=== PATIENT | male | born 1980 | race Hispanic/Latino ===

== ENCOUNTER 2022-08-17 14:26 | Emergency (ER) | payer SELFPAY ==
[2022-08-17 14:35] VITALS: BP 161/91; PULSE 75; RESP 16; TEMP 36.2; O2SAT 100
--- NOTE | 2022-08-17 15:33 | PC.NURSE ---
BS 411
[2022-08-17 15:34] LABS: Glucose Point of Care 411 mg/dl (65-105)
[2022-08-17 15:50] LABS: Basophils Percent Auto 0.5 % (0.2-1.2); Eosinophils Absolute Auto 0.3 K/mm3 (0-0.3); Eosinophils Percent Auto 3.3 % (0-4.4); Hemoglobin 13.7 g/dL (14.0-18.0); Immature Granulocyte Absolute 0.01 K/mm3 (0.00-0.031); Immature Granulocyte Percent A 0.1 % (0-0.5); Lymphocytes Absolute Auto 3.61 K/mm3 (0.9-3.2); Lymphocytes Percent Auto 47.7 % (18.3-44.2); Mean Corpuscular HGB Conc 33.4 g/dl (32-36); Mean Corpuscular Hemoglobin 27.1 pg (26-34); Monocytes Absolute Auto 0.5 K/mm3 (0.1-0.6); Monocytes Percent Auto 6.6 % (2.6-8.5); Neutrophils Absolute Auto 3.2 K/mm3 (1.3-6.7); Neutrophils Percent Auto 41.8 % (45.5-73.1); Platelet Count Result 246 k/mm3 (150-375); Red Blood Count 5.06 M/mm3 (4.6-6.20); Red Cell Distribution Width 13.2 % (11.5-14.5); White Blood Count 7.6 K/mm3 (4.5-10.0)
[2022-08-17 15:52] LABS: Appearance Urine Clear (Clear); Bilirubin Urine Negative (Negative); Blood Urine Negative (Negative); Color Urine Yellow (Yellow); Glucose Urine UA 3+ mg/dL (Negative); Ketones Urine Negative (Negative); Leukocyte Esterase Ur Negative LEU/UL (Negative); Nitrate Urine Negative (Negative); Protein Urine Negative (Negative); Specific Grav Ur 1.033 (1.001-1.035)
[2022-08-17 16:00] LABS: Alanine Aminotransferase 40 U/L (6-50); Albumin Level 4.1 g/dL (3.5-5.1); Alkaline Phosphatase 161 U/L (38-126); Anion Gap 6 mmol/L (8-16); Aspartate Amino Transferase 42 U/L (17-59); Bilirubin,Total 0.5 mg/dL (0.2-1.3); Blood Urea Nitrogen 16 mg/dL (9-20); Calcium 8.3 mg/dL (8.4-10.2); Carbon Dioxide 31 mmol/L (22-30); Chloride 96 mmol/L (98-107); Estimated CRCL calculation 216 ml/min; Estimated Glomerular Filt Rate > 60; Glucose 431 mg/dL (65-110); Potassium 4.4 mmol/L (3.4-5.0); Sodium 133 mmol/L (137-145)
[2022-08-17 16:04] LABS: Beta-Hydroxybutyrate/Acetoacetate 0.12 mmol/L (0.02-0.27)
[2022-08-17 16:04] LABS: Add Urine Microscopic? NO
[2022-08-17] MEDS: INSULIN HUMAN REGULAR (*BKC) 100 UNITS/ML 12 UNITS IV PUSH (16:45)
--- NOTE | 2022-08-17 16:45 | ED.EXTPRO ---
HPI - Extremity Problem General Chief complaint: Extremity Problem,Nontraumatic Stated complaint: pain hand/feet/knee Time Seen by Provider: 08/17/22 16:21 History of Present Illness HPI Narrative: Pt presents with burning pain to his feet and fingers for several months. Pt is diabetic and has not been managing his sugars well and has not been modifying his diet. Pt not sure how his sugars have been running (400s here). Pt denies vomiting or fever or diarrhea. Related Data Allergies Allergy/AdvReac Type Severity Reaction Status Date / Time No Known Allergies Allergy Verified 08/17/22 15:27 Review of Systems Review of Systems: All systems reviewed & are unremarkable except as noted in HPI and below Exam Const: General: healthy appearing Nutritional Appearance: well nourished Orientation/consciousness: patient oriented x3 Limitations: no limitations Resp: Effort & Inspection: normal respiratory effort Auscultation: clear to auscultation bilaterally Cardio: Rate: regular rate Rhythm: regular rhythm GI: GI Palp: Yes Soft to palpation Auscultation: normal bowel sounds Skin: General skin exam: normal color Wounds: no wounds Neuro: General: patient oriented x3 and moves all extremities Speech: normal speech Extrem: General: normal to inspection and no clubbing, cyanosis or edema Psych: Mental Status: mental status grossly normal Affect: normal affect Attitude: cooperative Course Vital Signs Vital signs: Vital Signs Temperature 97.1 F L 08/17/22 14:35 Pulse Rate 75 08/17/22 14:35 Respiratory Rate 16 08/17/22 14:35 Blood Pressure 161/91 H 08/17/22 14:35 Pulse Oximetry 100 08/17/22 14:35 Temperature 97.7 F 08/17/22 16:46 Pulse Rate 75 08/17/22 16:46 Respiratory Rate 15 08/17/22 16:46 Blood Pressure 183/99 H 08/17/22 16:46 Pulse Oximetry 100 08/17/22 16:46 MDM - Extremity (Nontraumatic) MDM Narrative Medical decision making narrative: Pt non compliant diabetic with likely neuropathy, will give insulin to bring down sugar and prescribe neurontin for neuropathy.. Repeat BS in 200's ok to discharge Lab Data 08/17/22 15:43 08/17/22 15:43 Labs: Lab Results 08/17/22 08/17/22 08/17/22 Range/Units 15:32 15:42 15:43 WBC 7.6 (4.5-10.0) K/mm3 RBC 5.06 (4.6-6.20) M/mm3 Hgb 13.7 L (14.0-18.0) g/dL Hct 41.0 L (42.0-52.0) % MCV 81.0 (80-100) fl MCH 27.1 (26-34) pg MCHC 33.4 (32-36) g/dl RDW 13.2 (11.5-14.5) % Plt Count 246 (150-375) k/mm3 MPV 10.0 (7.4-10.4) fl Immature Gran % (Auto) 0.1 (0-0.5) % Neut % (Auto) 41.8 L (45.5-73.1) % Lymph % (Auto) 47.7 H (18.3-44.2) % [place] % (Auto) 6.6 (2.6-8.5) % Eos % (Auto) 3.3 (0-4.4) % Baso % (Auto) 0.5 (0.2-1.2) % Lymph # (Auto) 3.61 H (0.9-3.2) K/mm3 [place] # (Auto) 0.5 (0.1-0.6) K/mm3 Eos # (Auto) 0.3 (0-0.3) K/mm3 Baso # (Auto) 0.0 (0.0-0.1) K/mm3 Abs Immat Gran (auto) 0.01 (0.00-0.031) K/mm3 Absolute Neuts (auto) 3.2 (1.3-6.7) K/mm3 Absolute Nucleated RBC 0.0 (0.0-0.012) K/mm3 Nucleated RBC % 0.0 (0.0-0.2) % Sodium (137-145) mmol/L Potassium (3.4-5.0) mmol/L Chloride (98-107) mmol/L Carbon Dioxide (22-30) mmol/L Anion Gap (8-16) mmol/L BUN (9-20) mg/dL Creatinine (0.7-1.3) mg/dL Estim Creat Clear Calc ml/min Estimated GFR (59 - ) Glucose (65-110) mg/dL POC Capillary Glucose 411 H (65-105) mg/dl Calcium (8.4-10.2) mg/dL Total Bilirubin (0.2-1.3) mg/dL AST (17-59) U/L ALT (6-50) U/L Alkaline Phosphatase (38-126) U/L Total Protein (6.3-8.2) g/dL Albumin (3.5-5.1) g/dL Beta-Hydroxybutyrate/Acetoacetate 0.12 (0.02-0.27) mmol/L Urine Color (Yellow) Urine Appearance (Clear) Urine pH (5.0-9.0) Ur Specific [place] (1.001-1.035) Urine Protein (Negative) mg/dL Urine
[2022-08-17 16:46] VITALS: BP 183/99; PULSE 75; RESP 15; TEMP 36.5; O2SAT 100
[2022-08-18 06:30] LABS: Glucose Point of Care 278 mg/dl (65-105)
== END 2022-08-17 17:52 | disposition home or self-care (01) ==
PROVIDERS: Emergency Provider Emergency Medicine
DX: E11.40 Type 2 diabetes mellitus with diabetic neuropathy, unspecified (principal)
CPT/HCPCS: 36415; 80053; 81003; 82010; 82948; 85025; 99283; J1815

== ENCOUNTER 2023-07-03 22:32 | Observation (INO) | payer MEDICAID, SELFPAY ==
--- NOTE | ~2023-07-03 | CT_ITS ---
Clinical Indication: Shortness of breath CT Scan of the Chest with Contrast: Technique: Contiguous sections were acquired throughout the chest after intravenous administration of 100 cc of Omnipaque 350. Dose reduction technique was used on this scan by utilizing automated expos ure control and iterative reconstruction technique. The dose-length product (DLP) was 908.38 mGy-cm. Findings: There is no evidence of any significant mediastinal, hilar or axillary lymphadenopathy. There is no f illing defect in the pulmonary arterial tree to suggest pulmonary embolus. There is no evidence of ao rtic dissection or aneurysm. There is no evidence of pleural or pericardial effusion. 3 mm right middle lobe pulmonary nodule noted. Lungs are otherwise clear. Images through the upper abdomen reveal no abnormalities. Impression: No evidence of pulmonary embolus, aortic dissection, or aortic aneurysm. 3 mm right middle lobe pulmonary nodule. According to Fleischner Society criteria, for a low-risk pat ient, no further follow-up required. For a high-risk patient, consider 12 follow-up CT. Reviewed, dictated and finalized at [facility]. ON SPINDLER Impression: No evidence of pulmonary embolus, aortic dissection, or aortic aneurysm. 3 mm right middle lobe pulmonary nodule. According to Fleischner Society criter ia, for a low-risk patient, no further follow-up required. For a high-risk pranay ent, consider 12 follow-up CT.
--- NOTE | ~2023-07-03 | XR_ITS ---
Portable chest x-ray Comparison: None Clinical History: Shortness of breath Findings: Lungs are clear, without focal consolidation or pleural effusion. Cardiomediastinal silho uette is unremarkable. Bones and soft tissues are unremarkable. Impression: Normal chest. Reviewed, dictated and finalized at [facility]. IC WELDER Impression: Normal chest.
[2023-07-03 22:40] VITALS: BP 196/118; PULSE 88; RESP 15; O2SAT 100
[2023-07-03 22:51] LABS: Glucose Point of Care 336 mg/dl (65-105)
--- NOTE | 2023-07-03 22:53 | ECG_ITS ---
Measurements Intervals [place] Rate: 91 P: 41 TN: 165 QRS: 44 QRSD: 96 T: 62 QT: 379 QTc: 467 Interpretive Statements SINUS RHYTHM VENTRICULAR PREMATURE COMPLEX POSSIBLE LEFT ATRIAL ENLARGEMENT DELAYED PRECORDIAL R/S TRANSITION VOLTAGE CRITERIA FOR LVH ST ELEVATION IN ANTERIOR LEADS- PROBABLY EARLY REPOLARIZATION BORDERLINE ECG NO PREVIOUS ECG AVAILABLE FOR COMPARISON Electronically Signed On 07-04-2023 6:43:45 CISSP by Hugo Lundberg D.O.
[2023-07-03] MEDS: SODIUM CHLORIDE 0.9% IV 1,000 ML 999 ML IV CONT (23:00)
[2023-07-03 23:03] LABS: Basophils Absolute Auto 0.1 K/mm3 (0.0-0.1); Basophils Percent Auto 0.4 % (0.2-1.2); Eosinophils Absolute Auto 0.3 K/mm3 (0-0.3); Eosinophils Percent Auto 2.2 % (0-4.4); Hematocrit 43.4 % (42.0-52.0); Hemoglobin 14.1 g/dL (14.0-18.0); Immature Granulocyte Absolute 0.02 K/mm3 (0.00-0.031); Immature Granulocyte Percent A 0.2 % (0-0.5); Lymphocytes Absolute Auto 4.78 K/mm3 (0.9-3.2); Lymphocytes Percent Auto 42.2 % (18.3-44.2); Mean Corpuscular HGB Conc 32.5 g/dl (32-36); Mean Corpuscular Hemoglobin 25.6 pg (26-34); Mean Corpuscular Volume 78.8 fl (80-100); Mean Platelet Volume 9.6 fl (7.4-10.4); Monocytes Percent Auto 8.5 % (2.6-8.5); Neutrophils Absolute Auto 5.3 K/mm3 (1.3-6.7); Neutrophils Percent Auto 46.5 % (45.5-73.1); Platelet Count Result 255 k/mm3 (150-375); Red Blood Count 5.51 M/mm3 (4.6-6.20); Red Cell Distribution Width 13.3 % (11.5-14.5); White Blood Count 11.3 K/mm3 (4.5-10.0)
[2023-07-03 23:16] LABS: Fractional Inspired Oxygen 21 %; HCO3 VBG 27.8 mEq/l (24.0-30.0); PCO2 VBG 35.9 mmHg (42.0-48.0); PO2 VBG 27.8 mmHg (35.0-45.0)
[2023-07-03 23:17] LABS: pH VBG 7.508 (7.300-7.400)
[2023-07-03 23:18] LABS: Device ROOM AIR; INR 0.9; Prothrombin Time 12.9 Seconds (11.1-14.7)
[2023-07-03 23:19] LABS: Partial Thromboplastin Time 28.2 SECONDS (22.3-36.8)
[2023-07-03 23:20] LABS: Alanine Aminotransferase 35 U/L (6-50); Albumin Level 4.3 g/dL (3.5-5.1); Alkaline Phosphatase 137 U/L (38-126); Anion Gap 10 mmol/L (8-16); Aspartate Amino Transferase 30 U/L (17-59); Bilirubin,Total 0.7 mg/dL (0.2-1.3); Blood Urea Nitrogen 9 mg/dL (9-20); Calcium 8.9 mg/dL (8.4-10.2); Carbon Dioxide 29 mmol/L (22-30); Chloride 90 mmol/L (98-107); Estimated CRCL calculation 155 ml/min; Estimated Glomerular Filt Rate > 60; Glucose 297 mg/dL (65-110); Lactic Acid Reflex 3.2 mmol/L (0.7-2.0); Lipase 125 U/L (23-300); Magnesium 1.5 mg/dL (1.6-2.3); Potassium 3.9 mmol/L (3.4-5.0); Sodium 129 mmol/L (137-145)
[2023-07-03 23:30] LABS: NT Pro B Type Natriuretic Pept 73 pg/mL (19.9-100); Troponin I < 0.012 ng/mL (0.000-0.034)
[2023-07-03 23:36] LABS: Procalcitonin 0.1 ng/mL
[2023-07-03 23:47] LABS: Appearance Urine Clear (Clear); Bacteria Urine None Seen /hpf; Bilirubin Urine Negative (Negative); Blood Urine Trace (Negative); Color Urine Yellow (Yellow); Glucose Urine UA 2+ mg/dL (Negative); Ketones Urine Negative (Negative); Leukocyte Esterase Ur Negative LEU/UL (Negative); Need Manual Microscopic Reviewed; Nitrate Urine Negative (Negative); Non Pathogenic Casts 0-2; Protein Urine Negative (Negative); RBC Urine 0-2 /hpf (0-2); Specific Grav Ur 1.005 (1.001-1.035); Squamous Epithelial Cell Urine None seen /hpf (Few); Urobilinogen Urine 0.2 mg/dL (<2.0); WBC Urine 0-5 /hpf; pH Urine 7.5 (5.0-9.0)
[2023-07-03 23:49] LABS: Add Urine Microscopic? YES
[2023-07-03 23:58] LABS: Beta-Hydroxybutyrate/Acetoacetate 0.12 mmol/L (0.02-0.27)
[2023-07-04] VITALS (19 sets, daily range): BP systolic 121–208; BP diastolic 60–116; PULSE 75–110; RESP 15–18; TEMP 36.4–37.1; O2SAT 98–100; BMI 33.3
--- NOTE | 2023-07-04 00:46 | ED.GENADULT ---
HPI - General Adult General Chief complaint: Shortness of Breath/Dyspnea Stated complaint: headache, SOB Time Seen by Provider: 07/03/23 22:40 History of Present Illness HPI narrative: Patient is a 43-year-old gentleman who presents emergency department with chief complaint of headache and shortness of breath. The patient reports that he is diabetic and his blood sugars have been running low on the high side she also reported some increasing urination and aches over his entire body. Patient states that his head has been very uncomfortable and reports that has little bit of a tightness and feeling as though he needs to take a good deep breath. Related Data Home Medications Medication Instructions Recorded Confirmed atorvastatin 20 mg tablet mg 07/04/23 glimepiride 4 mg tablet mg 07/04/23 losartan 50 mg tablet mg 07/04/23 metformin 500 mg tablet mg 07/04/23 Allergies Allergy/AdvReac Type Severity Reaction Status Date / Time No Known Allergies Allergy Verified 07/03/23 22:53 Review of Systems Review of Systems: A 10 system review of systems was completed on the patient and is negative except for what is stated in the HPI. Nursing and ancillary documentation was reviewed. Exam Narrative: GENERAL: Well-appearing, well-nourished, and in no acute distress. HEAD: Normocephalic, atraumatic. EYES: PERRLA and EOMI. ENT: Nares clear, no rhinorrhea or epistaxis. Mucous membranes moist. NECK: Supple. CHEST: Clear to auscultation. No respiratory distress. HEART: Regular rate and rhythm. No murmur heard. Normal peripheral pulses. ABDOMEN: Soft, nontender, nondistended, normal active bowel sounds. EXTREMITIES: Normal range of motion. No edema. SKIN: Warm, dry, no rash. NEURO: No focal deficits. Alert and oriented x3. PSYCH: Normal mood and affect. Course Vital Signs Vital signs: Vital Signs Pulse Rate 88 07/03/23 22:40 Respiratory Rate 15 07/03/23 22:40 Blood Pressure 196/118 H 07/03/23 22:40 Pulse Oximetry 100 07/03/23 22:40 Oxygen Delivery Room Air 07/03/23 22:40 Pulse Rate 100 07/04/23 03:34 Respiratory Rate 15 07/04/23 03:34 Blood Pressure 134/82 07/04/23 03:34 Pulse Oximetry 99 07/04/23 03:34 Oxygen Delivery Room Air 07/03/23 22:40 Medical Decision Making [facility] Narrative Medical decision making narrative: Differential diagnosis includes hypertensive crisis, ACS, pulmonary embolism, DKA, hyperglycemia Laboratory studies were obtained on the patient which showed the patient to be alkalotic and mildly elevated lactic acid. The patient's magnesium was 1.5 this was corrected with 2 g of magnesium IV in the emergency department. Patient's blood sugar initially was 336 and has subsequently come down into the 200s. CTA chest showed no evidence of pulmonary embolism initial troponin was -3 hour delta troponin was negative as well the patient was moderately hypertensive upon initial arrival with a blood pressure of 196/118. Given the patient was short of breath and also is having some discomfort in the chest and also headache there was concern for end-organ dysfunction patient showing no signs of renal failure has known focal neurological deficits patient's blood pressure was managed in the emergency department and the case was discussed with the hospitalist the patient be admitted for observation to achieve blood pressure control and hyperglycemia control. Vital Signs Vital Signs: Vital Signs Pulse Rate 88 07/03/23 22:40 Respiratory Rate 15 07/03/23 22:40 Blood Pressure 196/118 H 07/03/23 22:40 Pulse Oximetry 100 07/03/23 22:40 Oxygen Delivery Room Air 07/03/23 22:40 Pulse Rate 100 07/04/23 03:34 Respiratory Rate 15 07/04/23 03:34 Blood Pressure 134/82 07/04/23 03:34 Pulse Oximetry 99 07/04/23 03:34 Oxygen Delivery Room Air 07/03/23 22:40 Lab Data 07/03/23 22:56 07/03/23 22:56 Labs: Lab R
[2023-07-04] MEDS: hydrALAZINE HCL 20 MG/ML VIAL 10 MG IV PUSH (00:52)
[2023-07-04 02:01] LABS: Glucose Point of Care 263 mg/dl (65-105)
[2023-07-04 02:01] LABS: Reflex Lactic Acid Yes or No Add Lactic
[2023-07-04] MEDS: hydrALAZINE HCL 20 MG/ML VIAL IV PUSH (02:04)
[2023-07-04 02:05] LABS: Influenza A QL RT-PCR Negative (Negative); Influenza B QL RT-PCR Negative (Negative); RSV RNA, RT-PCR Negative (Negative); SARS-CoV-2 RNA PCR Negative (Negative)
[2023-07-04 02:11] LABS: Troponin I < 0.012 ng/mL (0.000-0.034)
[2023-07-04 02:14] LABS: Lactic Acid Reflex 2.1 mmol/L (0.7-2.0)
[2023-07-04] MEDS: METOPROLOL TARTRATE 50 MG TAB PO (04:09)
[2023-07-04] MEDS: MAGNESIUM SULF 2 GM/WATER 50ML 2 GM/50 ML BAG IVPB ×2 (04:09→16:37)
--- NOTE | 2023-07-04 05:05 | ADMGEN ---
This patient, Zaire Posada, was admitted to IMU Room 202-01. Patient/family oriented to hospital policies and general routines including ID bracelet, bed and alarms, visiting hours, pain management, procedures, bathroom and other care routines, personal items, smoking policy, room service/diet, and visiting hours. Information on how to activate the Rapid Response Team has been discussed. Patient/Family are encouraged to report perceived risks to care and to ask questions if they do not understand what they are told or what they should do.
[2023-07-04] MEDS: ACETAMINOPHEN 325 MG TABLET 650 MG PO (05:13)
[2023-07-04 05:16] LABS: Glucose Point of Care 306 mg/dl (65-105)
[2023-07-04 07:17] LABS: Lactic Acid 3.3 mmol/L (0.7-2.0)
[2023-07-04 08:38] LABS: Glucose Point of Care 448 mg/dl (65-105)
[2023-07-04] MEDS: INSULIN ASPART (*BKC) 100 UNITS/ML 8 UNITS SUB-Q (08:44)
[2023-07-04] MEDS: INSULIN GLARGINE (*BKC) 100 UNITS/ML 20 UNITS SUB-Q (08:44)
[2023-07-04 09:50] LABS: Hemoglobin A1C 12.9 % (<5.7)
[2023-07-04 11:58] LABS: Glucose Point of Care 351 mg/dl (65-105)
[2023-07-04] MEDS: INSULIN ASPART (*BKC) 100 UNITS/ML SUB-Q (12:19)
--- NOTE | 2023-07-04 13:49 | PCDIET ---
Pt was seen and assessed by simulation educator. Diabetes handbook in Nepalese provided to pt and family.
--- NOTE | 2023-07-04 15:47 | PM.IMHP ---
H&P: HPI History of Present Illness Date/Time: 07/04/23 15:47 Chief Complaint: Shortness of breath Narrative: Patient is a 43-year-old gentleman who presents emergency department with chief complaint of headache and shortness of breath.? The patient reports that he is diabetic and his blood sugars have been running low on the high side He also reported some increasing urination and aches over his entire body.? Patient states that his head has been very uncomfortable and reports that has little bit of a tightness and feeling as though he needs to take a good deep breath. He denies nausea, vomiting, fevers, chills, rigors, skin/joint changes. He drinks beers often, denies recreational/illicit drugs; he does not smoke/chew tobacco. She confesses that she does not take his medications, citing that he travels for work and is not in contact with his PCP office. Work-up findings: UA: Unremarkable Influenza A/B, RSV, SARS-COV2: -VE CTA chest: No evidence of pulmonary embolus, aortic dissection, or aortic aneurysm. 3 mm right middle lobe pulmonary nodule. According to Fleischner Society criteria, for a low-risk patient, no further follow-up required. For a high-risk patient, consider 12 follow-up CT. CXR: Unremarkable He will be admitted, evaluated and managed for hyperglycemia Review of Systems Constitutional: Constitutional: Reports no additional constitutional complaints and Reports fatigue Eyes: Eyes: Reports no additional eye complaints ENT: Reports system reviewed and no additional complaints, except as documented Cardiovascular: Cardiovascular: Reports no additional cardiovascular complaints Respiratory: Respiratory: Reports no additional respiratory complaints Gastrointestinal: Gastrointestinal: Reports no additional gastrointestinal complaints Genitourinary: Comments: Polyuria Musculoskeletal: Musculoskeletal: Reports no additional musculoskeletal complaints Integumentary/Breasts: Skin/Breast: Reports system reviewed and no additional complaints, except as docu Neurologic: Reports system reviewed and no additional complaints, except as documented Psychiatric: Psychiatric: Reports no additional psychiatric complaints PENDING SALE TO [facility] Past Medical History Medical History (Updated 07/04/23 @ 16:09 by Ciaran Tovar MD) Obesity (BMI 30.0-34.9) Family History Family History (Updated 07/04/23 @ 05:27 by Sasha Wallace RN) Mother Diabetes mellitus Sibling Diabetes mellitus Sibling Diabetes mellitus Social History Social History Smoking packs per day: 1 Smoking cigarettes per day: 20.0 Years smoked: 25 Smoking pack-years: 25.00 Smoking status: Current some day smoker Tobacco type: cigarettes Additional smoking assessment comments: Only smokes when he is drinnking Alcohol intake: current Substance use: current Substance use type: crack/cocaine Other substance usage details: Drinks 20 beers a night on the weekends. Last use: Cocaine on 07/01/23 Do You Feel Safe in your Home?: Yes Lack of Transportation: No Lack of Food: Never True Current Housing: I Have Housing Concerned About Future Housing: No Difficulty Paying Gas/Electric Bills: No Difficulty Paying for Meds: No Currently Unemployed: No Education: High School Diploma/GED Difficulty w/ Childcare or Family Care: No Spiritual care concerns: No Meds Home Medications and Allergies Home Medications Medication Instructions Recorded Confirmed Type ibuprofen 200 mg BYMOUTH QID PRN Headache 07/04/23 07/04/23 History Allergies Allergy/AdvReac Type Severity Reaction Status Date / Time No Known Allergies Allergy Verified 07/03/23 22:53 Vital Signs Vital Signs - 24 hr 07/03/23 22:40 07/04/23 00:23 07/04/23 00:52 Temperature Pulse Rate 88 84 86 Respiratory Rate 15 16 15 Blood Pressure 196/118 H 190/112 H 208/116 H Pulse Oxim
[2023-07-04 16:41] LABS: Cholesterol 198 mg/dL (0-200)
[2023-07-04 16:43] LABS: Triglycerides 709 mg/dL (<150)
[2023-07-04 16:45] LABS: LDL Cholesterol Direct 67 mg/dL; NT Pro B Type Natriuretic Pept 142 pg/mL (19.9-100)
[2023-07-04 16:58] LABS: Glucose Point of Care 458 mg/dl (65-105)
[2023-07-04] MEDS: INSULIN ASPART (*BKC) 100 UNITS/ML 12 UNITS SUB-Q (18:11)
[2023-07-04 20:03] LABS: Glucose Point of Care 305 mg/dl (65-105)
[2023-07-04] MEDS: INSULIN GLARGINE (*BKC) 100 UNITS/ML 35 UNITS SUB-Q (21:09)
[2023-07-05] VITALS (10 sets, daily range): BP systolic 151–168; BP diastolic 81–99; PULSE 75–98; RESP 16–18; TEMP 36.3–36.7; O2SAT 98–100
--- NOTE | 2023-07-05 | ECHO_ITS ---
Patient Info Name: Zaire Posada Age: 43 years : 1980 Gender: Male Ht: 68 in Wt: 222 lbs BSA: 2.23 m2 HR: 86 bpm BP: 168 / 90 mmHg Heart Rhythm: Sinus Rhythm Technical Quality: Good Exam Date: 07/05/2023 9:42 AM Exam Location: Echo Lab Patient Status: Inpatient Admit Date: 07/04/2023 Staff Ordering Physician: Ciaran Tovar MD Latcher: Amna Hurley RDCS Attending Provider: Estela Mckeon DO Referring Physician: La SLAUGHTER; Exam Type: CA echo doppler color flow Study Info Indications R06.02 - Shortness of breath Complete two-dimensional, color flow and Doppler transthoracic echocardiogram is performed. Summary 1. Complete two-dimensional, color flow and Doppler transthoracic echocardiogram is performed. 2. Left ventricular chamber dimension is normal. 3. Left ventricular systolic function is normal, estimated at 65-70%. 4. There is moderately increased left ventricular wall thickness. 5. The left ventricular diastolic function is grade I diastolic dysfunction. 6. Right ventricular systolic function is normal. 7. There is trace mitral valve regurgitation. 8. There is trace tricuspid valve regurgitation. Left Ventricle Left ventricular chamber dimension is normal. Left ventricular systolic function is normal, estimated at 65-70%. There is moderately increased left ventricular wall thickness. The left ventricular diastolic function is grade I diastolic dysfunction. Right Ventricle Right ventricular chamber dimension is normal. Right ventricular systolic function is normal. Left Atria Left atrial chamber dimension is normal. Right Atria Right atrial chamber dimension is normal. Atrial Septum Intact interatrial septum visualized by color flow imaging. Aortic Valve The aortic valve is trileaflet. There is no aortic valve stenosis. There is no aortic valve regurgitation. Pulmonic Valve The pulmonic valve is not well visualized. Mitral Valve There is trace mitral valve regurgitation. Tricuspid Valve There is trace tricuspid valve regurgitation. Pericardium/Pleural There is no pericardial effusion. Inferior Vena Cava Normal inferior vena cava with <50% collapse upon inspiration consistent with elevated right atrial pressure, 8 mmHg. Aorta The aortic root size at the sinus of Valsalva is normal. Left Ventricular Outflow Tract Name Value Normal LVOT 2D LVOT Diameter 2.2 cm LVOT Doppler LVOT Peak Gradient 5 mmHg LVOT Mean Gradient 2 mmHg LVOT VTI 17 cm LVOT VTI/AV VTI Ratio 0.7 LVOT Stroke Volume 63 ml LVOT CO 4.8 l/min LVOT CI 2.2 l/min/m2 Pulmonic Valve Name Value Normal RVOT Doppler RVOT Peak Gradient 3 mmHg PV Doppler
[2023-07-05 05:01] LABS: Basophils Percent Auto 0.4 % (0.2-1.2); Eosinophils Absolute Auto 0.2 K/mm3 (0-0.3); Eosinophils Percent Auto 3.4 % (0-4.4); Hematocrit 41.1 % (42.0-52.0); Hemoglobin 13.1 g/dL (14.0-18.0); Immature Granulocyte Absolute 0.02 K/mm3 (0.00-0.031); Immature Granulocyte Percent A 0.3 % (0-0.5); Lymphocytes Absolute Auto 3.43 K/mm3 (0.9-3.2); Lymphocytes Percent Auto 47.9 % (18.3-44.2); Mean Corpuscular HGB Conc 31.9 g/dl (32-36); Mean Corpuscular Hemoglobin 25.7 pg (26-34); Mean Corpuscular Volume 80.6 fl (80-100); Monocytes Absolute Auto 0.6 K/mm3 (0.1-0.6); Neutrophils Absolute Auto 2.9 K/mm3 (1.3-6.7); Platelet Count Result 231 k/mm3 (150-375); Red Cell Distribution Width 13.5 % (11.5-14.5); White Blood Count 7.2 K/mm3 (4.5-10.0)
[2023-07-05 05:13] LABS: Alanine Aminotransferase 29 U/L (6-50); Albumin Level 3.7 g/dL (3.5-5.1); Alkaline Phosphatase 140 U/L (38-126); Anion Gap 7 mmol/L (8-16); Aspartate Amino Transferase 30 U/L (17-59); Bilirubin,Total 0.7 mg/dL (0.2-1.3); Blood Urea Nitrogen 14 mg/dL (9-20); Calcium 8.2 mg/dL (8.4-10.2); Carbon Dioxide 28 mmol/L (22-30); Chloride 97 mmol/L (98-107); Estimated CRCL calculation 181 ml/min; Estimated Glomerular Filt Rate > 60; Glucose 299 mg/dL (65-110); Potassium 4.1 mmol/L (3.4-5.0); Sodium 132 mmol/L (137-145)
[2023-07-05 08:02] LABS: Glucose Point of Care 278 mg/dl (65-105)
[2023-07-05 08:20] LABS: Troponin I < 0.012 ng/mL (0.000-0.034)
[2023-07-05] MEDS: INSULIN ASPART (*BKC) 100 UNITS/ML SUB-Q ×2 (08:34→11:36)
[2023-07-05] MEDS: LOSARTAN POTASSIUM 50 MG TABLET PO (08:35)
[2023-07-05] MEDS: INSULIN GLARGINE (*BKC) 100 UNITS/ML 35 UNITS SUB-Q (08:35)
[2023-07-05] MEDS: FUROSEMIDE INJ 40 MG/4 ML VIAL 20 MG IV PUSH (08:36)
[2023-07-05 11:36] LABS: Glucose Point of Care 363 mg/dl (65-105)
--- NOTE | 2023-07-05 13:50 | PM.DS ---
DS: Admitting Diagnosis Discharge Date 06/25/23 Admitting Diagnosis Acute and principal conditions 1. Hyperglycemia;?Type 2 DM.?HbA1c 12.9%: Poor compliance with Rx; Basal+correctional insulin 2.?Hypomagnesemia. Will replete and monitor 3. Elevated ALP.?bone/liver. unknown etiology. Will monitor, GGT 4. Headaches. Maybe 2/2 acute illness. will provide analgesia Chronic and stable conditions 1.?Obesity. BMI 33. Diet and lifestyle modification. 2.?Dyslipidemia. Resume Statin 3.?Hypertension. Resume Losartan 4. Alcohol dependence.?Will monitor for withdrawal symptoms 5. Nicotine dependence. Cessation counseling, 3 minutes Disposition:?TBD; likely home when stable VTE Prophylaxis.?Lovenox Nutrition. Carb-controlled DS: Discharge Diagnosis Discharge Diagnosis Plan Acute and principal conditions 1. Hyperglycemia;?Type 2 DM.?HbA1c 12.9%: Poor compliance with Rx; Basal+correctional insulin 2.?Hypomagnesemia. Will replete and monitor 3. Elevated ALP.?bone/liver. unknown etiology. Will monitor, GGT 4. Headaches. Maybe 2/2 acute illness. will provide analgesia Chronic and stable conditions 1.?Obesity. BMI 33. Diet and lifestyle modification. 2.?Dyslipidemia. Resume Statin 3.?Hypertension. Resume Losartan 4. Alcohol dependence.?Will monitor for withdrawal symptoms 5. Nicotine dependence. Cessation counseling, 3 minutes Disposition:?TBD; likely home when stable VTE Prophylaxis.?Lovenox Nutrition. Carb-controlled DS: Summary Hospital Course Reason for hospitalization: Hyperglycemia Hospital Course: Chief Complaint: Shortness of breath Narrative: Patient is a 43-year-old gentleman who presents emergency department with chief complaint of headache and shortness of breath.? The patient reports that he is diabetic and his blood sugars have been running low on the high side He also reported some increasing urination and aches over his entire body.? Patient states that his head has been very uncomfortable and reports that has little bit of a tightness and feeling as though he needs to take a good deep breath. He denies nausea, vomiting, fevers, chills, rigors, skin/joint changes. He drinks beers often, denies recreational/illicit drugs; he does not smoke/chew tobacco. She confesses that she does not take his medications, citing that he travels for work and is not in contact with his PCP office. Work-up findings: UA: Unremarkable Influenza A/B, RSV, SARS-COV2: -VE CTA chest:?No evidence of pulmonary embolus, aortic dissection, or aortic aneurysm. 3 mm right middle lobe pulmonary nodule. According to Fleischner Society criteria, for a low-risk patient, no further follow-up required. For a high-risk patient, consider 12 follow-up CT. CXR: Unremarkable He will be admitted, evaluated and managed for hyperglycemia Acute and principal conditions 1. Hyperglycemia;?Type 2 DM.?HbA1c 12.9%: Poor compliance with Rx; Basal+correctional insulin 2.?Hypomagnesemia. Will replete and monitor 3. Elevated ALP.?bone/liver. unknown etiology. Will monitor, GGT 4. Headaches. Maybe 2/2 acute illness. will provide analgesia Chronic and stable conditions 1.?Obesity. BMI 33. Diet and lifestyle modification. 2.?Dyslipidemia. Resume Statin 3.?Hypertension. Resume Losartan 4. Alcohol dependence.?Will monitor for withdrawal symptoms 5. Nicotine dependence. Cessation counseling, 3 minutes Disposition:?TBD; likely home when stable VTE Prophylaxis.?Lovenox Nutrition. Carb-controlled Time spent discussing smoking cessation with patient: 3 to 10 minutes Status at Discharge Functional status at discharge: independent ambulation Time Spent with Patient Time attestation: Total time spent providing and/or coordinating discharge services: Exam Const: General: no acute distress HENMT: Face/Nose/Sinus: Normal nares present Eyes: General: appearance normal, both eyes and all related structures Neck: Neck: supple Resp: Auscultation: clear to auscultation bilaterally
[2023-07-07 19:29] LABS: GGT 124 U/L (3-95)
== END 2023-07-05 13:40 | disposition home or self-care (01) ==
LOC: ANHED 07-04 04:25 → ANHIMU 07-04 05:51
PROVIDERS: Admitting Provider Internal Medicine; Emergency Provider Emergency Medicine; PCP Physician Assistant; Visit Provider Internal Medicine
DX: E11.65 Type 2 diabetes mellitus with hyperglycemia (principal); E83.42 Hypomagnesemia; I10 Essential (primary) hypertension; E66.9 Obesity, unspecified; Z68.33 Body mass index [BMI] 33.0-33.9, adult; R94.31 Abnormal electrocardiogram [ECG] [EKG]; R74.02 Elevation of levels of lactic acid dehydrogenase [LDH]; E78.5 Hyperlipidemia, unspecified; R91.1 Solitary pulmonary nodule; R74.8 Abnormal levels of other serum enzymes; Z20.822 Contact with and (suspected) exposure to COVID-19; F17.210 Nicotine dependence, cigarettes, uncomplicated; F10.20 Alcohol dependence, uncomplicated; F14.90 Cocaine use, unspecified, uncomplicated; Z79.1 Long term (current) use of non-steroidal anti-inflammatories (NSAID); Z79.84 Long term (current) use of oral hypoglycemic drugs; Z79.899 Other long term (current) drug therapy; Z84.89 Family history of other specified conditions
CPT/HCPCS: 36415; 71045; 71275; 80053; 80061; 81001; 82010; 82803; 82948; 82977; 83036; 83605; 83690; 83735; 83880; 84145; 84484; 85025; 85610; 85730; 87637; 93005; 93306; 96360; 96361; 96365; 96366; 96374; 96375; 96376; 99285; A9270; G0378; J0360; J1815; J1940; J3475; J7030; Q9967

== ENCOUNTER 2024-03-08 10:51 | Emergency (ER) | payer OTHER, SELFPAY ==
--- NOTE | ~2024-03-08 | CT_ITS ---
EXAMINATION: CT abdomen pelvis w con DATE: 03/08/2024 14:01 INDICATION: Right upper quadrant abdominal pain and left lower quadrant abdominal pain. TECHNIQUE: Computed tomography (CT) of the abdomen and pelvis was performed with 100 mL Omnipaque-350 intravenous contrast. Automated exposure control and iterative reconstruction technique were employe d. The dose-length product was 860.70 mGy-cm. COMPARISON: None FINDINGS: Mild dependent atelectasis in the bilateral lower lobes. Heart size normal. No pericardial or pleural effusion. Liver, gallbladder, spleen, pancreas and bilateral adrenal glands are normal. 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 Bilateral renal cysts the la rger on the left measuring 1.6 cm. There is bilateral perinephric stranding. Bladder is normal. Mild prostatomegaly measuring 4.4 x 4.1 cm. Bowels including the appendix are normal. No free intraperiton eal gas or fluid. No pathologically enlarged abdominal or pelvic lymphadenopathy. Calcifications paris g the penile fascia consistent with Peyronie's disease. Mild lumbar levocurvature with mild spondylos is. 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 IMPRESSION: 1. Nonspecific bilateral perinephric stranding raising concern for ascending urinary tract infection. Correlate with urinalysis. 2. Mild prostatomegaly. 3. Incidental left pelvic kidney. Reviewed, dictated and finalized at location A. IMPRESSION: 1. Nonspecific bilateral perinephric stranding raising concern for ascending ur inary tract infection. Correlate with urinalysis. 2. Mild prostatomegaly. 3. Incidental left pelvic kidney.
[2024-03-08 11:05] VITALS: BP 140/90; PULSE 77; RESP 16; TEMP 36.6; O2SAT 99
[2024-03-08 12:34] VITALS: BP 136/96; PULSE 89; RESP 14; TEMP 36.4; O2SAT 100
[2024-03-08 13:12] LABS: Basophils Percent Auto 0.3 % (0.2-1.2); Eosinophils Absolute Auto 0.3 K/mm3 (0-0.3); Eosinophils Percent Auto 2.9 % (0-4.4); Hematocrit 40.6 % (42.0-52.0); Hemoglobin 13.8 g/dL (14.0-18.0); Immature Granulocyte Absolute 0.02 K/mm3 (0.00-0.031); Immature Granulocyte Percent A 0.2 % (0-0.5); Lymphocytes Absolute Auto 3.51 K/mm3 (0.9-3.2); Lymphocytes Percent Auto 40.2 % (18.3-44.2); Mean Corpuscular Hemoglobin 27.8 pg (26-34); Mean Corpuscular Volume 81.7 fl (80-100); Mean Platelet Volume 9.6 fl (7.4-10.4); Monocytes Absolute Auto 0.7 K/mm3 (0.1-0.6); Monocytes Percent Auto 7.8 % (2.6-8.5); Neutrophils Absolute Auto 4.2 K/mm3 (1.3-6.7); Neutrophils Percent Auto 48.6 % (45.5-73.1); Platelet Count Result 253 k/mm3 (150-375); Red Blood Count 4.97 M/mm3 (4.6-6.20); Red Cell Distribution Width 13.8 % (11.5-14.5); White Blood Count 8.7 K/mm3 (4.5-10.0)
[2024-03-08 13:29] LABS: Alanine Aminotransferase 45 U/L (6-50); Albumin Level 4.3 g/dL (3.5-5.1); Alkaline Phosphatase 95 U/L (38-126); Anion Gap 12 mmol/L (4-12); Aspartate Amino Transferase 50 U/L (17-59); Bilirubin,Total 0.5 mg/dL (0.2-1.3); Blood Urea Nitrogen 17 mg/dL (9-20); Calcium 8.7 mg/dL (8.4-10.2); Carbon Dioxide 23 mmol/L (22-30); Chloride 94 mmol/L (98-107); Estimated Glomerular Filt Rate > 60; Glucose 318 mg/dL (65-110); Potassium 4.5 mmol/L (3.4-5.0); Sodium 129 mmol/L (137-145)
--- NOTE | 2024-03-08 13:29 | ED.GENADULT ---
HPI - General Adult General Chief complaint: Unspecified Stated complaint: BODY ACHES Time Seen by Provider: 03/08/24 12:34 History of Present Illness HPI narrative: Patient is a 43-year-old male who presents ER with multiple issues. First issue is diffuse abdominal pain. Ongoing over last 4 days. Worsening right upper quadrant and left lower quadrant. Associated bloating and belching. He reports mild constipation but also episodes of diarrhea. No fevers or chills or sweats. Reports he he has also been having issues with pain in his hands and feet. Notices it at the end of the day. He was just restarted on his home diabetes and blood pressure medication 2 days ago after being without it for 3 weeks. Unsure if he has diabetic neuropathy. Related Data Home Medications Medication Instructions Recorded Confirmed atorvastatin 40 mg tablet mg 03/08/24 03/08/24 glimepiride 4 mg tablet mg 03/08/24 hydrochlorothiazide 25 mg tablet mg 03/08/24 losartan 50 mg tablet mg 03/08/24 metformin 1,000 mg tablet mg 03/08/24 ropinirole 0.25 mg tablet mg 03/08/24 terbinafine HCl 1 % topical cream applic topical 03/08/24 Allergies Allergy/AdvReac Type Severity Reaction Status Date / Time No Known Allergies Allergy Verified 03/08/24 11:12 Review of Systems Review of Systems: All systems reviewed & are unremarkable except as noted in HPI and below Constitutional: Constitutional: Reports no additional constitutional complaints ENT: Reports system reviewed and no additional complaints, except as documented Cardiovascular: Cardiovascular: Reports no additional cardiovascular complaints Respiratory: Respiratory: Reports no additional respiratory complaints Gastrointestinal: Gastrointestinal: Reports abdominal pain, Reports bloating and Denies nausea PMFSH Past Medical History Medical History (Updated 03/08/24 @ 15:31 by Martin Nava MD) Diabetes mellitus Obesity (BMI 30.0-34.9) Family History Family History (Updated 07/04/23 @ 05:27 by Sasha Wallace RN) Mother Diabetes mellitus Sibling Diabetes mellitus Sibling Diabetes mellitus Social History Social History Smoking packs per day: 1 Smoking cigarettes per day: 20.0 Years smoked: 25 Smoking pack-years: 25.00 Smoking status: Current some day smoker Tobacco type: cigarettes Additional smoking assessment comments: Only smokes when he is drinnking Alcohol intake: current Substance use: current Substance use type: crack/cocaine Other substance usage details: Drinks 20 beers a night on the weekends. Last use: Cocaine on 07/01/23 Do You Feel Safe in your Home?: Yes Lack of Transportation: No Lack of Food: Never True Current Housing: I Have Housing Concerned About Future Housing: No Difficulty Paying Gas/Electric Bills: No Difficulty Paying for Meds: No Currently Unemployed: No Education: High School Diploma/GED Difficulty w/ Childcare or Family Care: No Spiritual care concerns: No Exam Narrative: GENERAL: Well-appearing, well-nourished, and in no acute distress. HEAD: Normocephalic, atraumatic. ENT: Mucous membranes moist. CHEST: Clear to auscultation. No respiratory distress. HEART: Regular rate and rhythm. Normal peripheral pulses. ABDOMEN: Soft, diffuse tenderness without guarding and patient becomes tearful, nondistended, normal active bowel sounds. EXTREMITIES: Normal range of motion. No edema. SKIN: Warm, dry, no rash. NEURO: Alert and oriented x3. PSYCH: Normal mood and affect. Course Course Emergency Course: The viral panel negative. Urinalysis without infection. CMP and CBC only significant for elevated blood sugar with mildly depressed sodium likely related to hyperglycemia. CT scan without acute process. There is stranding of the kidneys however no evidence of infection. Recommend follow-up with PCP. Suspect patient's
[2024-03-08] MEDS: SODIUM CHLORIDE 0.9% IV 1,000 ML 999 ML IV CONT (13:37)
[2024-03-08] MEDS: MORPHINE SULFATE (*CRX) 4 MG/ML INJ IV PUSH (13:38)
[2024-03-08] MEDS: ONDANSETRON INJ 4 MG/2 ML VIAL IV PUSH (13:38)
[2024-03-08 13:48] LABS: Influenza A QL RT-PCR Negative (Negative); Influenza B QL RT-PCR Negative (Negative); RSV RNA, RT-PCR Negative (Negative); SARS-CoV-2 RNA PCR Negative (Negative)
[2024-03-08 14:35] VITALS: BP 152/96; PULSE 74; RESP 18; O2SAT 100
[2024-03-08 14:59] LABS: Add Urine Microscopic? NO; Appearance Urine Clear (Clear); Bilirubin Urine Negative (Negative); Blood Urine Negative (Negative); Color Urine Yellow (Yellow); Glucose Urine UA 3+ mg/dL (Negative); Ketones Urine Negative (Negative); Leukocyte Esterase Ur Negative LEU/UL (Negative); Nitrate Urine Negative (Negative); Protein Urine Negative (Negative); Specific Grav Ur > 1.045 (1.001-1.035); pH Urine 6.5 (5.0-9.0)
[2024-03-08 15:48] VITALS: BP 135/92; PULSE 88; RESP 16; TEMP 36.7; O2SAT 99
== END 2024-03-08 15:49 | disposition home or self-care (01) ==
PROVIDERS: Physician Assistant; Emergency Provider Emergency Medicine; PCP Physician Assistant
DX: R10.11 Right upper quadrant pain (principal); E11.40 Type 2 diabetes mellitus with diabetic neuropathy, unspecified; E66.9 Obesity, unspecified; F17.210 Nicotine dependence, cigarettes, uncomplicated; Z79.84 Long term (current) use of oral hypoglycemic drugs; Z20.822 Contact with and (suspected) exposure to COVID-19
CPT/HCPCS: 36415; 74177; 80053; 81003; 85025; 87637; 96361; 96374; 96375; 99284; J2270; J2405; J7030; Q9967

== ENCOUNTER 2025-01-14 10:47 | Emergency (ER) | payer SELFPAY ==
--- NOTE | ~2025-01-14 | XR_ITS ---
EXAMINATION: XR chest 2V 01/14/2025 11:56 INDICATION: Stabbing chest pressure PROCEDURE: 2 view chest COMPARISON: 07/03/2023 FINDINGS: The lungs are clear. The cardiomediastinal silhouette is within normal limits. There are no pleural effusions. There is no pneumothorax suspected. IMPRESSION: 1: NO ACUTE CARDIOPULMONARY DISEASE. Reviewed, dictated and finalized at location A.
[2025-01-14 10:51] VITALS: BP 168/88; PULSE 89; RESP 20; TEMP 36.3; O2SAT 100
--- NOTE | 2025-01-14 10:54 | ECG_ITS ---
Test Date: 2025-01-14 11:04:15 Measurements Intervals [place] Rate: 79 P: 16 DE: 162 QRS: 59 QRSD: 101 T: 61 QT: 387 QTc: 445 Interpretive Statements SINUS RHYTHM POSSIBLE LEFT ATRIAL ENLARGEMENT ANTEROSEPTAL INFARCT, AGE INDETERMINATE BORDERLINE T WAVE ABNORMALITY- HIGH LATERAL LEADS ABNORMAL ECG No previous ECG available for comparison Electronically Signed On 01-14-2025 11:17:06 CDT by Hugo Lundberg D.O.
[2025-01-14 11:11] LABS: Hematocrit 41.8 % (42.0-52.0); Hemoglobin 13.2 g/dL (14.0-18.0); Immature Granulocyte Percent A 0.3 % (0-0.5); Lymphocytes Absolute Auto 2.54 K/mm3 (0.9-3.2); Mean Corpuscular HGB Conc 31.6 g/dl (32-36); Mean Corpuscular Hemoglobin 25.9 pg (26-34); Mean Corpuscular Volume 82.1 fl (80-100); Nucleated Red Blood Cells Absolute Auto 0.000 K/mm3 (0.0-0.012); Nucleated Red Blood Cells Perc 0.0 % (0.0-0.2); Platelet Count Result 251 k/mm3 (150-375); Red Blood Count 5.09 M/mm3 (4.6-6.20); White Blood Count 7.8 K/mm3 (4.5-10.0)
[2025-01-14 11:25] LABS: INR 1.0; Prothrombin Time 12.9 Seconds (11.1-14.7)
[2025-01-14 11:26] LABS: Partial Thromboplastin Time 26.0 Seconds (22.3-36.8)
[2025-01-14 11:36] LABS: Alanine Aminotransferase 43 U/L (6-50); Albumin Level 4.2 g/dL (3.5-5.1); Alkaline Phosphatase 115 U/L (38-126); Anion Gap 10 mmol/L (4-12); Aspartate Amino Transferase 37 U/L (17-59); Bilirubin,Total 0.5 mg/dL (0.2-1.3); Blood Urea Nitrogen 14 mg/dL (9-20); Calcium 8.8 mg/dL (8.4-10.2); Carbon Dioxide 24 mmol/L (22-30); Chloride 99 mmol/L (98-107); Estimated Glomerular Filt Rate > 60; Glucose 272 mg/dL (65-110); Lipase 172 U/L (23-300); Potassium 4.4 mmol/L (3.4-5.0); Sodium 133 mmol/L (137-145); Total Protein 7.4 g/dL (6.3-8.2)
[2025-01-14 11:43] LABS: Troponin I < 0.012 ng/mL (0.000-0.034)
[2025-01-14] MEDS: KETOROLAC 30 MG/ML VIAL (*BKC) IV PUSH (13:02)
[2025-01-14] MEDS: SODIUM CHLORIDE 0.9% IV 1,000 ML 999 ML IV CONT (13:02)
--- NOTE | 2025-01-14 13:10 | ED_ITS ---
HPI - General Adult General Chief complaint: Unspecified Stated complaint: whole body going numb started 01/12 Time Seen by Provider: 01/14/25 11:59 History of Present Illness HPI narrative: Patient is a 44-year-old male who presents ER with reports of numbness. Entire body. Ongoing since 01/12/2025. Has been off of his diabetic medication for 2 weeks. Reports that he has had mild headache and thinks he may have hold. He has had some sore throat and cough. No documented fevers or chills. Has been seen for similar symptoms in the past. No aggravating or alleviating factors that he can identify. Patient is sleeping deeply on initial presentation. Patient reports chest pain is like gas associated with belching. Related Data Home Medications ?Medication ?Instructions ?Recorded ?Confirmed ?Last Taken ?Type atorvastatin 40 mg tablet mg 03/08/24 03/08/24 Unknown History glimepiride 4 mg tablet mg 03/08/24 Unknown History hydrochlorothiazide 25 mg tablet mg 03/08/24 Unknown History losartan 50 mg tablet mg 03/08/24 Unknown History metformin 1,000 mg tablet mg 03/08/24 Unknown History ropinirole 0.25 mg tablet mg 03/08/24 Unknown History terbinafine HCl 1 % topical cream applic topical 03/08/24 Unknown History Allergies Allergy/AdvReac Type Severity Reaction Status Date / Time No Known Allergies Allergy Verified 03/08/24 11:12 Review of Systems 2 Review of Systems: All systems reviewed & are unremarkable except as noted in HPI and below Constitutional: Constitutional: Reports no additional constitutional complaints Cardiovascular: Cardiovascular: Reports no additional cardiovascular complaints Respiratory: Respiratory: Reports no additional respiratory complaints Gastrointestinal: Gastrointestinal: Reports no additional gastrointestinal complaints Integumentary/Breasts: Skin/Breast: Reports system reviewed and no additional complaints, except as docu [facility] Past Medical History Medical History (Updated 01/14/25 @ 14:20 by Martin Nava MD) Diabetes mellitus Obesity (BMI 30.0-34.9) Family History Family History (Updated 07/04/23 @ 05:27 by Sasha Wallace RN) Mother Diabetes mellitus Sibling Diabetes mellitus Sibling Diabetes mellitus Social History Social History Smoking packs per day: 1 Smoking cigarettes per day: 20.0 Years smoked: 25 Smoking pack-years: 25.00 Smoking status: Current some day smoker Tobacco type: cigarettes Additional smoking assessment comments: Only smokes when he is drinnking Alcohol intake: current Substance use: current Substance use type: crack/cocaine Other substance usage details: Drinks 20 beers a night on the weekends. Last use: Cocaine on 07/01/23 Do You Feel Safe in your Home?: Yes Lack of Transportation: No Lack of Food: Never True Current Housing: I Have Housing Concerned About Future Housing: No Difficulty Paying Gas/Electric Bills: No Difficulty Paying for Meds: No Currently Unemployed: No Education: High School Diploma/GED Difficulty w/ Childcare or Family Care: No Spiritual care concerns: No Exam 2 Narrative: GENERAL: Well-appearing, well-nourished, and in no acute distress. HEAD: Normocephalic, atraumatic. ENT: Mucous membranes moist. CHEST: Clear to auscultation. No respiratory distress. HEART: Regular rate and rhythm. Normal peripheral pulses. ABDOMEN: Soft, nontender, nondistended. EXTREMITIES: Normal range of motion. No edema. 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 NEURO: Alert and oriented x3. No facial asymmetry. Clear speech. No upper lower extremity drift. Normal [id number] testing. Gross sensation intact. PSYCH: Normal mood and affect. Course Course Emergency Course: Unremarkable evaluation. Recommend follow-up with PCP. Troponin negative x2. Vital Signs Vital signs: Vital Signs Temperature 97.3 F L 01/14/25 10:51 Pulse Rate 89 01/14/25 10:51 Respiratory Rate 20 01/14/25 10:51 Blood Pressure 168/88 H 01/14/25 10:51 Pulse Oximetry 100 01/14/25 10:51 Oxygen Delivery Room Air 01/14/25 10:51 Temperature 97.3 F L 01/14/25 10:51 Pulse Rate 89 01/14/25 10:51 Respiratory Rate 20 01/14/25 10:51 Blood Pressure 168/88 H 01/14/25 10:51 Pulse Oximetry 100 01/14/25 10:51 Oxygen Delivery Room Air 01/14/25 10:51 Medical Decision Making Vital Signs Vital Signs: Vital Signs Temperature 97.3 F L 01/14/25 10:51 Pulse Rate 89 01/14/25 10:51 Respiratory Rate 20 01/14/25 10:51 Blood Pressure 168/88 H 01/14/25 10:51 Pulse Oximetry 100 01/14/25 10:51 Oxygen Delivery Room Air 01/14/25 10:51 Temperature 97.3 F L 01/14/25 10:51 Pulse Rate 89 01/14/25 10:51 Respiratory Rate 20 01/14/25 10:51 Blood Pressure 168/88 H 01/14/25 10:51 Pulse Oximetry 100 01/14/25 10:51 Oxygen Delivery Room Air 01/14/25 10:51 Lab Data 01/14/25 11:06 01/14/25 11:06 Labs: Lab Results 01/14/25 01/14/25 01/14/25 Range/Units 11:06 12:46 14:14 WBC 7.8 (4.5-10.0) K/mm3 RBC 5.09 (4.6-6.20) M/mm3 Hgb 13.2 L (14.0-18.0) g/dL Hct 41.8 L (42.0-52.0) % MCV 82.1 (80-100) fl MCH 25.9 L (26-34) pg MCHC 31.6 L (32-36) g/dl RDW 12.8 (11.5-14.5) % Plt Count 251 (150-375) k/mm3 MPV 9.4 (7.4-10.4) fl Immature Gran % (Auto) 0.3 (0-0.5) % Neut % (Auto) 58.3 (45.5-73.1) % Lymph % (Auto) 32.6 (18.3-44.2) % Republic % (Auto) 5.3 (2.6-8.5) % Eos % (Auto) 3.1 (0-4.4) % Baso % (Auto) 0.4 (0.2-1.2) % Lymph # (Auto) 2.54 (0.9-3.2) K/mm3 [place] # (Auto) 0.4 (0.1-0.6) K/mm3 Eos # (Auto) 0.2 (0-0.3) K/mm3 Baso # (Auto) 0.0 (0.0-0.1) K/mm3 Abs Immat Gran (auto) 0.02 (0.00-0.031) K/mm3 Absolute Neuts (auto) 4.6 (1.3-6.7) K/mm3 Absolute Nucleated RBC 0.000 (0.0-0.012) K/mm3 Nucleated RBC % 0.0 (0.0-0.2) % PT 12.9 (11.1-14.7) Seconds INR 1.0 APTT 26.0 (22.3-36.8) Seconds Sodium 133 L (137-145) mmol/L Potassium 4.4 (3.4-5.0) mmol/L Chloride 99 (98-107) mmol/L Carbon Dioxide 24 (22-30) mmol/L Anion Gap 10 (4-12) mmol/L BUN 14 (9-20) mg/dL Creatinine 0.61 L (0.7-1.3) mg/dL Estim Creat Clear Calc Not Reportable Estimated GFR > 60 (59 - ) Glucose 272 H (65-110) mg/dL Calcium 8.8 (8.4-10.2) mg/dL Total Bilirubin 0.5 (0.2-1.3) mg/dL AST 37 (17-59) U/L ALT 43 (6-50) U/L Alkaline Phosphatase 115 (38-126) U/L Troponin I < 0.012 < 0.012 (0.000-0.034) ng/mL Total Protein 7.4 (6.3-8.2) g/dL Albumin 4.2 (3.5-5.1) g/dL Lipase 172 (23-300) U/L Influenza A (RT-PCR) Negative (Negative) Influenza B (RT-PCR) Negative (Negative) RSV (RT-PCR) Negative (Negative) SARS-CoV-2 RNA (RT-PCR) Negative (Negative) Imaging Data Radiologist's impression: ITS Impressions Chest X-Ray 01/14/25 11:58 IMPRESSION: 1: NO ACUTE CARDIOPULMONARY DISEASE. ECG Data EKG #1: ECG completion date: 01/14/25 ECG completion time: 11:04 EKG Interpretation: normal rate (79), sinus rhythm, non-specific ST changes (Early repolarization abnormality), normal QRS and normal QT Discharge Plan Discharge Clinical Impression: Paresthesia Patient Disposition: Home Condition: Stable Instructions: Paresthesia (ED) Additional Instructions: Please return to the emergency department if you develop severe and persistent chest pain, difficulty breathing, dizziness, leg swelling or if you are coughing up blood as these can be signs of a medical emergency. Please call your doctor for a follow up appointment to determine the need for further testing. Patient Language: Nepalese Prescriptions: No Action losartan 50 mg tablet atorvastatin 40 mg tablet terbinafine HCl 1 % cream TOPICAL ropinirole 0.25 mg tablet metformin 1,000 mg tablet glimepiride 4 mg tablet hydrochlorothiazide 25 mg tablet ondansetron 4 mg tablet,disintegrating 4 mg PO Q6H PRN (Reason: nausea and vomiting) Qty: 10 0RF naproxen 375 mg tablet 375 mg PO BID Qty: 14 0RF Follow-up/Referrals: Luca,COLBY Weiss [Primary Care Provider] - 1 Week
[2025-01-14 13:29] LABS: Influenza A QL RT-PCR Negative (Negative); Influenza B QL RT-PCR Negative (Negative); RSV RNA, RT-PCR Negative (Negative); SARS-CoV-2 RNA PCR Negative (Negative)
[2025-01-14 14:46] LABS: Troponin I < 0.012 ng/mL (0.000-0.034)
== END 2025-01-14 16:07 | disposition home or self-care (01) ==
PROVIDERS: Family Medicine; Emergency Provider Emergency Medicine; PCP Physician Assistant
DX: R20.2 Paresthesia of skin (principal); R94.31 Abnormal electrocardiogram [ECG] [EKG]; E11.9 Type 2 diabetes mellitus without complications; Z79.84 Long term (current) use of oral hypoglycemic drugs; F17.210 Nicotine dependence, cigarettes, uncomplicated
CPT/HCPCS: 36415; 71046; 80053; 83690; 84484; 85025; 85610; 85730; 87637; 93005; 96361; 96374; 99284; J1885; J7030